=== PATIENT | female | born 1950 | race Caucasian/White ===

== ENCOUNTER 2024-07-25 08:53 | Inpatient (IN) | payer MEDICARE, BC ==
[~2024-07-25] VITALS: Ht 167.6 cm; Wt 70.3 kg
[2024-07-25] MEDS ORDERED: dexaMETHasone SOD PHOSPHATE 2 ML ONE (10:03)
[2024-07-25] MEDS ORDERED: VANCOMYCIN 1 GM VIAL ONE (10:03)
[2024-07-25] MEDS ORDERED: LIDOCAINE 2%-EPI 1:100,000 30 ML VIAL ONE (10:03)
[2024-07-25] MEDS ORDERED: LIDOCAINE 2% JEL UROJET 10 ML MM ONE (10:13)
[2024-07-25] MEDS ORDERED: FENTANYL PF 100MCG/2ML AMPUL ONE (10:13)
[2024-07-25] MEDS ORDERED: ROCURONIUM BROMIDE 50 MG/5 ML ONE (10:14)
[2024-07-25] MEDS ORDERED: MIDAZOLAM HCL 2 MG/2ML VIAL ONE (10:14)
[2024-07-25] MEDS ORDERED: OXYMETAZOLINE HCL NASAL SPRAY 30 ML BOTTLE NS ONE (10:14)
[2024-07-25] MEDS ORDERED: FAMOTIDINE/PF INJ 20 MG/2 ML VIAL IV ONE (10:14)
[2024-07-25] MEDS ORDERED: ONDANSETRON HCL/PF 4 MG/2 ML VIAL IVP PRN ×2 (12:00→16:00)
[2024-07-25] MEDS ORDERED: HYDROMORPHONE INJ 2 MG/ML DISP.SYRIN IV PRN (12:00)
[2024-07-25] MEDS ORDERED: FLUMAZENIL 0.5 MG VIAL ONE (12:44)
[2024-07-25] MEDS ORDERED: ONDANSETRON HCL/PF 4 MG/2 ML VIAL IV PRN (13:00)
[2024-07-25 13:15] VITALS: BP 131/71; TEMP 97.5; O2SAT 93
[2024-07-25] MEDS: HYDROMORPHONE 1 MG/1 ML DISP.SYRIN IV PRN (13:55)
[2024-07-25 14:15] VITALS: BP 131/77; TEMP 97.8; O2SAT 94
[2024-07-25 14:30] VITALS: BP 133/71; TEMP 97.5; O2SAT 95
[2024-07-25 14:45] VITALS: BP 129/77; TEMP 97.3; O2SAT 94
[2024-07-25] MEDS ORDERED: AMOX1TAB16 PO (14:57)
[2024-07-25] MEDS ORDERED: TRAM50TA2 PO (14:57)
[2024-07-25 16:00] VITALS: BP 112/62; TEMP 97.2; O2SAT 96
[2024-07-25] MEDS ORDERED: Z GUARD REMEDY 4 OZ OINT TP PRN (16:00)
[2024-07-25] MEDS ORDERED: ACETAMINOPHEN 325 MG TABLET PO PRN (16:00)
[2024-07-25] MEDS ORDERED: MAG HYDROX/AL HYDROX/SIMETH 30 ML UDC PO PRN (16:00)
[2024-07-25] MEDS ORDERED: MAGNESIUM HYDROXIDE 30 ML UDC PO PRN (16:00)
[2024-07-25] MEDS: IV NS 0.9% 1,000 ML IV PRN (16:18)
[2024-07-25 20:15] VITALS: BP 118/65; TEMP 98.4; O2SAT 94
[2024-07-25] MEDS: VANCOMYCIN 1 GM in IV D5W 250ml IV SCH (22:41)
[2024-07-25] MEDS: ZOLPIDEM TARTRATE 5 MG TABLET PO PRN (23:03)
[2024-07-26 06:08] LABS: BASOPHILS % (AUTO) 0.1 % (0.0-2.0); HEMATOCRIT 34 % (33-45); HEMOGLOBIN 10.9 g/dL (11.5-14.8); LYMPHOCYTES % (AUTO) 9.1 % (20.0-44.0); MEAN CORPUSCULAR HEMOGLOBIN 29 PG (26.0-33.0); MEAN CORPUSCULAR HGB CONC 32 g/dl (31.0-36.0); MEAN CORPUSCULAR VOLUME 91 fL (82-100); MONOCYTES # (AUTO) 0.5 K/uL (0.1-1.30); MONOCYTES % (AUTO) 4.6 % (2.0-12.0); NEUTROPHILS # (AUTO) 9.1 K/uL (1.8-8.9); NEUTROPHILS % (AUTO) 86.2 % (43.0-81.0); PLATELET COUNT (AUTO) 256 K/uL (150-450); RED BLOOD CELL COUNT(AUTO) 3.72 MIL/uL (4.0-5.2); RED CELL DISTRIBUTION WIDTH 12.8 % (11.5-15.0); WHITE BLOOD COUNT (AUTO) 10.6 K/uL (4.3-11.0)
[2024-07-26 06:22] LABS: CALCIUM, SERUM 8.5 mg/dL (8.5-10.1); CARBON DIOXIDE 28 mmol/L (21-32); CHLORIDE 106 mmol/L (98-107); CREATININE 0.9 mg/dL (0.6-1.3); GLUCOSE 108 mg/dL (74-106); MAGNESIUM 1.9 mg/dL (1.8-2.4); PHOSPHORUS 3.7 mg/dL (2.5-4.9); POTASSIUM 4.5 mmol/L (3.5-5.1); SODIUM SERUM 140 mmol/L (136-145); UREA NITROGEN, BLOOD 19 mg/dL (7-18)
[2024-07-26] MEDS: ACETAMINOPHEN 325 MG TABLET PO PRN (13:17)
== END 2024-07-26 14:00 | disposition home or self-care (01) | DRG 142 ==
LOC: DS 08:53 → MED 13:40
PROVIDERS: ADMIT Student in an Organized Health Care Education/Training Program; ATTEND Student in an Organized Health Care Education/Training Program
PROC: 0NSR04Z Reposition Maxilla with Internal Fixation Device, Open Approach (ICD-10-PCS; principal; 2024-07-25)
PROC: 0N5R0ZZ Destruction of Maxilla, Open Approach (ICD-10-PCS; 2024-07-25)
PROC: 0NUR07Z Supplement Maxilla with Autologous Tissue Substitute, Open Approach (ICD-10-PCS; 2024-07-25)
PROC: 0NUR0JZ Supplement Maxilla with Synthetic Substitute, Open Approach (ICD-10-PCS; 2024-07-25)
DX: S02.40CA Maxillary fracture, right side, initial encounter for closed fracture (principal); M27.2 Inflammatory conditions of jaws; X58.XXXA Exposure to other specified factors, initial encounter; Y92.9 Unspecified place or not applicable; D64.9 Anemia, unspecified; Z80.9 Family history of malignant neoplasm, unspecified; Z82.49 Family history of ischemic heart disease and other diseases of the circulatory system; D16.4 Benign neoplasm of bones of skull and face; M27.40 Unspecified cyst of jaw
CPT/HCPCS: 36415; 80048-TC; 83735-TC; 84100-TC; 85025-TC; A4223; A4338; C1713; C1781; G0378; J1100; J1171; J2250; J2405; J2704; J2765; J3010; J3370; J3490; J7030; J7060